=== PATIENT | female | born 2000 | race Caucasian/White ===

== ENCOUNTER 2022-01-19 09:44 | Emergency (ER) | payer MEDICAID, SELFPAY ==
[2022-01-19 09:52] VITALS: BP 131/81; PULSE 88; RESP 16; TEMP 35.8; O2SAT 97; BMI 25.7
--- NOTE | 2022-01-19 10:43 | ED_ITS ---
HPI - General Adult General Time Seen by Provider: 10:44 Date Seen: 01/19/22 Chief complaint: Nose Injury/Pain Stated complaint: Hurt nose, possible fracture Time Seen by Provider: 01/19/22 10:43 Source: patient and RN notes reviewed Mode of arrival: ambulatory Limitations: no limitations History of Present Illness HPI narrative: Patient is a 21-year-old female coming to the ER with concern of possible nasal fracture. She states she awoke from a nightmare and actually hit herself in the nose while she was awakening. I did question her on this and discussed with her that his medical providers we are always concerned about safety of patients. Did review with her that we want to make sure that this was not inflicted by a anyone else and she is adamant that it was self injury. She denies being harmed by anybody else. She denies chronic problems with nightmares. She denies any visual changes, no hearing changes. She states her nose did bleed for a while after this happen but has stopped. Nothing else on her face hurts, no oral or dental issues. She is a college student at [employer], will be returning to college shortly. She hopes to teach art someday. Review of Systems Status of ROS: Reports: 6 or more systems reviewed and unremarkable except as noted in History and below Exam Const: Vital Signs, click to edit/add: Vital Signs - 24 hr 01/19/22 09:52 Temperature 96.4 F L Pulse Rate [Pulse Oximeter] 88 Respiratory Rate 16 Blood Pressure [Ri ght Upper Arm] 131/81 Pulse Oximetry 97 Oxygen Delivery Me thod Room Air Documenting provider has reviewed patient's vital signs: yes Common normals: no apparent distress, average body habitus, oriented x3, no limitati ons, healthy appearing, alert and well nourished General appearance: cooperative, comfortable and well kempt HENMT: Common normals: normocephalic, head/scalp atraumatic, hearing grossly normal bilaterally, external ears normal, EAC's normal, TM's normal bilaterally, external nose normal (Appears normal but is tender when I palpate the nasal bridge.), nasal mucous membranes and turbinates normal, moist oral mucous membranes, oropharynx normal, dentition normal and gingiva normal Head and scalp: normocephalic and atraumatic Nose: external nose normal (Appears normal but is tender when I palpate the nasal bridge.), nares normal, nasal mucous membranes and turbinates normal, septum normal (No hematoma but does seem to be some septal swelling but is mild), no nasal discharge and other (No active bleeding, no site of prior bleeding seen) External ear: external ears normal External auditory canal: EAC's normal Tympanic membrane: TM's normal bilaterally Eye: Common normals: PERRL, EOMs intact bilaterally, conjunctivae normal and no scleral icterus Conjunctiva: conjunctiva(e) normal Pupil: PERRL Neck & C-Spine: Common normals: full ROM, no lymphadenopathy, supple, no meningeal signs, no JVD and thyroid normal Thyroid: thyroid normal Cardio: Common normals: no JVD Neuro: Common normals: oriented x3 Sensorium/orientation: alert Meningeal signs: no meningeal signs Psych: Appearance: well kempt Course Course Hospital Course: On clinical exam, she is tender when I palpate the bony nasal bridge. She does not have appearance of significant traumatic change but did review with her the only way to truly look for fractures would be to do imaging. Standard of care would be to do a facial bone CT. She is in agreement with the plan. Vital Signs Vital signs: Initial Vital Signs Temperature 96.4 F L 01/19/22 09:52 Temperature Source Temporal Artery Scan 01/19/22 09:52 Pulse Rate 88 01/19/22 09:52 Pulse Rhythm 01/19/22 09:52 Respiratory Rate 16 01/19/22 09:52 Blood Pressure 131/81 01/19/22 09:52 Blood Pressure Mean 97 01/19/22 09:52 Pulse Oximetry 97 01/19/22 09:52 Oxygen Delivery Method 01/19/22 09:52 Vital Signs Temperature 96.4 F L 01/19/22 09:52 Pulse Rate 88 01/19/22 09:52 Respiratory Rate 16 01/19/22 09:52 Blood Pressure 131/81 01/19/22 09:52 Pulse Oximetry 97 01/19/22 09:52 Oxygen Delivery Method 01/19/22 09:52 Temperature 96.4 F L 01/19/22 09:52 Pulse Rate 88 01/19/22 09:52 Respiratory Rate 16 01/19/22 09:52 Blood Pressure 131/81 01/19/22 09:52 Pulse Oximetry 97 01/19/22 09:52 Oxygen Delivery Method 01/19/22 09:52 Medical Decision Making Imaging Data CT- Other: Attestation: I have reviewed the pertinent imaging results. Radiologist's impression: Patient: [facility] Facility:?[facility] Patient ID:?[id number] Site Patient ID:?[id number]. Site :?[id number] Study:?CT Facial W/O-01/19/2022 11:12:01 AM Ordering Physician:Salima Child Final Report: INDICATION: Facial injury. TECHNIQUE: CT maxillofacial without contrast. Coronal and sagittal reformats were generated. COMPARISON: None. FINDINGS: Facial bones: No fractures or bone lesions. Specifically the nasal bones, tem poromandibular joints, maxilla, and mandible appear intact. Orbits and globes: Unremarkable. Globes are intact. No sign of intraorbital hemorrhage or emphysema. Sinuses: No acute or significant findings. Soft tissues: Unremarkable. IMPRESSION: No facial fractures. Please note that all CT scans at this facility use dose modulation, iterative reconstruction, and/or weight-based dosing when appropriate to reduce radiation dose to as low as reasonably achievable. Dictated by David Garcia MD @ 01/19/2022 12:05:37 PM (Electronic Signature) Critical Care Time Critical Care Time Critical Care Time: No Discharge Plan Discharge Clinical Impression: Contusion of nose Patient Disposition: Home, Self-Care Condition: Stable Instructions: Nosebleed (ED), Nasal Contusion (ED) Additional Instructions: Can use Tylenol and/or ibuprofen as needed for discomfort, follow bottle directions. Can use ice packs for the next couple of days to help minimize pain and swelling. If you have progressive difficulty breathing through your nose, recurrent bleeding that does not stop with 30 minutes of direct pressure over the nose, any other concerns, please seek re-evaluation. Follow Up/Referrals: Kell Joshua DO [Primary Care Provider] - Stand Alone Forms: [facility] Inst[facility]
--- NOTE | 2022-01-19 10:49 | CRLHL7_ITS ---
For Patients: As a result of the Cures Act, medical imaging exams and procedure reports are released immediately into your electronic medical record. You may view this report before your referring provider. If you have questions, please contact your health care provider. INDICATION: Facial injury. TECHNIQUE: CT maxillofacial without contrast. Coronal and sagittal reformats were generated. COMPARISON: None. FINDINGS: Facial bones: No fractures or bone lesions. Specifically the nasal bones, temporomandibular joints, maxilla, and mandible appear intact. Orbits and globes: Unremarkable. Globes are intact. No sign of intraorbital hemorrhage or emphysema. Sinuses: No acute or significant findings. Soft tissues: Unremarkable. IMPRESSION: No facial fractures. Please note that all CT scans at this facility use dose modulation, iterative reconstruction, and/or weight-based dosing when appropriate to reduce radiation dose to as low as reasonably achievable. Dictated by David Garcia MD @ 01/19/2022 12:05:37 PM (Electronically Signed)
== END 2022-01-19 12:33 | disposition home or self-care (01) ==
PROVIDERS: Emergency Provider Family Medicine; PCP Family Medicine
DX: S00.33XA Contusion of nose, initial encounter (principal)
CPT/HCPCS: 70486; 99283; 99284

== ENCOUNTER 2023-07-19 12:33 | Outpatient (CLI) | payer MEDICAID, SELFPAY | END 2023-07-19 12:34 | disposition home or self-care (01) | LOC: NFLDREF 07-20 08:40 | PROVIDERS: PCP Family Medicine; Referring Provider Family Medicine; Visit Provider Nurse Practitioner Family | DX: R35.0 Frequency of micturition (principal); N30.00 Acute cystitis without hematuria | CPT/HCPCS: 87086 ==